=== PATIENT | female | born 1940 | race Caucasian/White ===

== ENCOUNTER 2024-09-05 14:01 | Emergency (ER) | payer MEDICARE, OTHER ==
[2024-09-05 14:27] LABS: BASOPHILS ABSOLUTE AUTO 0.1 x10^3/uL (0.0-0.2); BASOPHILS PERCENT AUTO 0.3 % (0.2-1.2); EOSINOPHILS PERCENT AUTO 0.1 % (0.0-4.0); HEMOGLOBIN 13.6 g/dL (12.0-16.0); IMMATURE GRAN ABSOLUTE AUTO 0.04 x10^3/uL (0.00-0.07); LYMPHOCYTES ABSOLUTE AUTO 1.1 x10^3/uL (1.0-4.8); LYMPHOCYTES PERCENT AUTO 5.8 % (25.0-50.0); MEAN CORPUSCULAR HEMOGLOBIN 26.3 pg (26.0-32.0); MEAN CORPUSCULAR HGB CONC 33.2 g/dL (32.0-36.0); MEAN CORPUSCULAR VOLUME 79.2 fL (78.0-93.0); MONOCYTES ABSOLUTE AUTO 1.2 x10^3/uL (0.0-0.8); MONOCYTES PERCENT AUTO 6.4 % (2.0-11.0); NEUTROPHILS ABSOLUTE AUTO 15.9 x10^3/uL (1.8-7.7); NEUTROPHILS PERCENT AUTO 87.2 % (50.0-80.0); PLATELET COUNT,PLT 284 x10^3/uL (130-400); RED BLOOD CELL COUNT 5.18 x10^6/uL (4.00-5.50)
[2024-09-05 14:32] LABS: WHITE BLOOD CELL COUNT,WBC 18.2 x10^3/uL (4.0-10.0)
[2024-09-05 14:41] LABS: A/G RATIO 0.89; ALANINE AMINOTRANSFERASE,ALT 28 U/L (14-59); ALBUMIN 3.4 g/dL (3.4-5.0); ALKALINE PHOSPHATASE 97 U/L (46-116); ASPARTATE AMNIOTRANSFERASE,AST 30 U/L (15-37); BILIRUBIN TOTAL 0.5 mg/dL (0.2-1.0); BLOOD UREA NITROGEN,BUN 20 mg/dL (7-18); CALCIUM 8.9 mg/dL (8.5-10.1); CARBON DIOXIDE,CO2 28 mmol/L (21-32); CHLORIDE,CL 99 mmol/L (98-107); CREATINE KINASE,CK 138 U/L (26-192); CREATININE 0.9 mg/dL (0.55-1.02); GLUCOSE RANDOM 300 mg/dL (70-99); POTASSIUM,K 4.6 mmol/L (3.5-5.1); PROTEIN TOTAL,TP 7.2 g/dL (6.4-8.2); SODIUM,NA 136 mmol/L (136-145)
[2024-09-05 14:42] LABS: ANION GAP 13.6 mmol/L (5-15); ESTIMATED GFR 62 mL/min (>=60)
[2024-09-05] MEDS: Piperacillin/Tazobactam 4.5 GM in Sodium Chloride 0.9% 100 ML IV ONE (16:12)
[2024-09-05] MEDS: Oxymetazoline 0.05% Nasal Spray 30 ML Bottle NAS ONE (17:56)
[2024-09-05] MEDS: Iopamidol 612 MG/ML 100 ML Bottle IVPUSH ONE (18:17)
[2024-09-05 19:39] VITALS: BP 169/102; PULSE 85
== END 2024-09-05 19:59 | disposition short-term general hospital (02) ==
LOC: VM.ED 14:01
DX: S02.2XXA Fracture of nasal bones, initial encounter for closed fracture (principal); S52.502A Unspecified fracture of the lower end of left radius, initial encounter for closed fracture; I10 Essential (primary) hypertension; Z91.018 Allergy to other foods; Z79.899 Other long term (current) drug therapy; W19.XXXA Unspecified fall, initial encounter
CPT/HCPCS: 70450; 70486; 72125; 73100-LT; 74177; 80053; 82550; 85025; 96365; 99284; 99285-25; A9270-GY; J2543; Q9967